=== PATIENT | male | born 1960 | race Caucasian/White ===

== ENCOUNTER 2022-09-02 09:23 | Emergency (ER) | payer OTHER ==
[~2022-09-02] VITALS: Ht 175.3 cm; Wt 127.0 kg
[~2022-09-02 09:23] MED LIST: ACET325 PO; ALBU90OI INH; ALLO100 PO; ASPI325 PO; ASPI81CH PO; ATOR40TA PO; Amoxicillin500 MG PO; CEPH500 PO; CLOP75 PO; CODGUAEL PO; CYCL10 PO; FURO80 PO; Flomax0.4 MG PO; Hydrocodone-Ap1 EA23 PO; IBUP400; IBUP800 PO; KETO10 PO; MELO7.5 PO; METO25 PO; NAPR550 PO; NITR.4SL SL; Norco 5-325 Ta1 EACH PO; OXYACE5T PO; POTCHL10ER PO; PRAV20 PO; Percocet 10-321 EACH PO; Percocet 5-3251 EACH PO; Prednisone20 MG PO; Viagra100 MG PO; Zithromax250 MG PO; Zofran4 MG PO
[2022-09-02 10:07] VITALS: BP 126/72
[2022-09-02] MEDS ORDERED: Bactrim Ds Tab1 EACH PO (11:14)
[2022-09-02] MEDS ORDERED: CEPH500 PO (14:50)
[2022-09-02] MEDS ORDERED: AMOCLA875 PO (16:15)
== END 2022-09-02 12:31 | disposition home or self-care (01) ==
LOC: ER 09:23
DX: L02.416 Cutaneous abscess of left lower limb (principal); I25.2 Old myocardial infarction; I10 Essential (primary) hypertension; Z91.09 Other allergy status, other than to drugs and biological substances; Z79.899 Other long term (current) drug therapy; Z79.82 Long term (current) use of aspirin; Z87.891 Personal history of nicotine dependence
CPT/HCPCS: 10060; 87070; 87077; 87147; 87186; 87205; 99283-25; A9270